=== PATIENT | female | born 1965 | race Caucasian/White ===

== ENCOUNTER → 2016-05-02 | Outpatient (CLI) | payer OTHER ==
[~2016-05-02] MED LIST: IBU600 MG PO; PERCOCET 325 MG1 TA2 PO; SENOKOT8.6 MG PO
[2016-05-02 09:53] LABS: HEMATOCRIT 40.5 % (37.0-47.0); HEMOGLOBIN 14.3 g/dl (12.5-16.0); MEAN CELL VOLUME 84 fl (80.0-100.0); MEAN CORPUSCULAR HEMOGLOBIN 30 pg (27.0-31.0); MEAN CORPUSCULAR HGB CONC 35 g/dl (33.0-37.0); PLATELET COUNT 301 K/mm3 (130-400); RED BLOOD COUNT 4.81 M/mm3 (4.10-5.30); REDCELL DISTRIBUTION WIDTH-CV 12.3 % (11.5-14.5)
[2016-05-02 10:02] LABS: PH 5 (5-8); SQUAMOUS EPITHELIAL 0-2 /hpf; URINE APPEARANCE Clear; URINE BACTERIA Rare /hpf; URINE BILIRUBIN Negative (NEGATIVE); URINE BLOOD Negative (NEGATIVE); URINE COLOR Yellow; URINE GLUCOSE Negative (NEGATIVE); URINE KETONE Negative (NEGATIVE); URINE RBC 0-2 /hpf; URINE UROBILINOGEN Negative (NEGATIVE); URINE WBC 0-2 /hpf
[2016-05-02 10:10] LABS: ADJUSTED CALCIUM 8.8 mg/dL (8.4-10.2); ALBUMIN 4.6 gm/dL (3.5-5.0); BILIRUBIN,TOTAL 0.8 mg/dL (0.0-1.0); CALCIUM 9.3 mg/dL (8.4-10.2); CREATININE, serum 0.86 mg/dL (0.52-1.25); POTASSIUM 3.5 mmol/L (3.4-5.0); TOTAL PROTEIN 8.3 gm/dL (6.4-8.2)
[2016-05-02 11:01] LABS: THYROID STIMULATING HORMONE 13.3 uIU/mL (0.465-4.680)
== END ==
LOC: COL.LAB 09:00
PROVIDERS: Family Medicine
DX: Z00.00 Encounter for general adult medical examination without abnormal findings (principal)

== ENCOUNTER → 2016-08-20 | Outpatient (REF) | LOC: WSOH 15:00 | DX: Z02.89 Encounter for other administrative examinations (principal) ==

== ENCOUNTER → 2016-10-09 | Outpatient (REF) | LOC: WSOH 16:30 | DX: Z02.89 Encounter for other administrative examinations (principal) ==

== ENCOUNTER → 2016-11-19 | Outpatient (CLI) | payer OTHER | LOC: MC.RAD 11-12 07:00 | DX: Z12.31 Encounter for screening mammogram for malignant neoplasm of breast (principal) ==

== ENCOUNTER → 2017-11-19 | Outpatient (CLI) | payer OTHER | LOC: COL.RAD 07:12 | DX: R10.11 Right upper quadrant pain (principal) ==

== ENCOUNTER → 2017-12-31 | Outpatient (CLI) | payer OTHER | LOC: MC.RAD 12:46 | DX: Z12.31 Encounter for screening mammogram for malignant neoplasm of breast (principal) ==

== ENCOUNTER 2018-03-23 19:18 | Observation (INO) | payer OTHER ==
[~2018-03-23] VITALS: Ht 160 cm; Wt 83.6 kg
[2018-03-23] MEDS ORDERED: LEVOXYL0.112 MG PO (19:31)
[2018-03-23] MEDS ORDERED: LOPID 600M600 MG/TAB PO (19:31)
[2018-03-23] MEDS ORDERED: COZAAR100 MG PO (19:31)
[2018-03-23 19:58] VITALS: BP 105/63; PULSE 75
[2018-03-23 20:12] LABS: BASO % 0.2 % (0.0-2.0); GRAN # 4.2 (1.4-6.5); GRAN % 75.5 % (42.2-75.2); HEMATOCRIT 38.4 % (37.0-47.0); HEMOGLOBIN 13.4 g/dl (12.5-16.0); LYMPH # 0.9 (1.2-3.4); LYMPH % 16.2 % (20.0-51.0); MEAN CELL VOLUME 84 fl (80.0-100.0); MEAN CORPUSCULAR HEMOGLOBIN 30 pg (27.0-31.0); MEAN CORPUSCULAR HGB CONC 35 g/dl (33.0-37.0); MEAN PLATELET VOLUME 9.6 fl (7.4-10.4); MONO # 0.4 (0.1-0.6); MONO % 7.7 % (1.7-9.3); PLATELET COUNT 267 K/mm3 (130-400); RED BLOOD COUNT 4.55 M/mm3 (4.10-5.30); REDCELL DISTRIBUTION WIDTH-CV 12.1 % (11.5-14.5)
[2018-03-23 20:25] LABS: ALANINE AMINOTRANSFERASE 21 U/L (9-52); ALBUMIN 4.1 gm/dL (3.5-5.0); ALKALINE PHOSPHATASE 83 U/L (50-136); ANION GAP 9 mmol/L (7-16); AST,SGOT 23 U/L (15-37); BILIRUBIN,TOTAL 0.6 mg/dL (0.0-1.0); BLOOD UREA NITROGEN 17 mg/dL (7-17); CALCIUM 8.9 mg/dL (8.4-10.2); CARBON DIOXIDE 24 mmol/L (22-30); CHLORIDE 102 mmol/L (98-107); CREATININE, serum 0.83 mg/dL (0.52-1.25); GLUCOSE 120 mg/dL (74-106); POTASSIUM 3.4 mmol/L (3.4-5.0); SODIUM 135 mmol/L (137-145); TOTAL PROTEIN 7.3 gm/dL (6.4-8.2)
[2018-03-23 20:36] LABS: TROPONIN-I < 0.012 ng/mL (0.000-0.035)
[2018-03-23 21:12] LABS: MAGNESIUM 1.8 mg/dL (1.6-2.3)
[2018-03-23 21:45] LABS: COLLECTION METHOD CLEAN CATCH
[2018-03-23 21:51] LABS: MUCOUS Present /lpf; PH 5 (5-8); SQUAMOUS EPITHELIAL 0-2 /hpf; URINE APPEARANCE Clear; URINE BACTERIA Occasional /hpf; URINE BILIRUBIN Negative (NEGATIVE); URINE BLOOD Negative (NEGATIVE); URINE COLOR Yellow; URINE GLUCOSE Negative (NEGATIVE); URINE KETONE Negative (NEGATIVE); URINE LEUKOCYTE ESTERASE Negative (NEGATIVE); URINE NITRATE Negative (NEGATIVE); URINE PROTEIN(semi-quant) Negative (NEGATIVE); URINE RBC 0-2 /hpf; URINE UROBILINOGEN Negative (NEGATIVE)
[2018-03-23 22:55] VITALS: BP 118/76; PULSE 78; TEMP 98.1
[2018-03-24 04:30] VITALS: BP 99/57; PULSE 64; TEMP 98.8
[2018-03-24 06:52] LABS: BASO % 0.3 % (0.0-2.0); EOS % 0.9 % (0-4.0); GRAN # 1.6 (1.4-6.5); GRAN % 48.1 % (42.2-75.2); HEMOGLOBIN 11.7 g/dl (12.5-16.0); LYMPH # 1.3 (1.2-3.4); LYMPH % 37.9 % (20.0-51.0); MEAN CELL VOLUME 85 fl (80.0-100.0); MEAN CORPUSCULAR HEMOGLOBIN 29 pg (27.0-31.0); MEAN CORPUSCULAR HGB CONC 35 g/dl (33.0-37.0); MEAN PLATELET VOLUME 10.1 fl (7.4-10.4); MONO # 0.4 (0.1-0.6); MONO % 12.5 % (1.7-9.3); PLATELET COUNT 213 K/mm3 (130-400); RED BLOOD COUNT 3.99 M/mm3 (4.10-5.30); REDCELL DISTRIBUTION WIDTH-CV 12.3 % (11.5-14.5)
[2018-03-24 06:53] LABS: HEMATOCRIT 33.8 % (37.0-47.0)
[2018-03-24 07:08] LABS: CALCIUM 8.1 mg/dL (8.4-10.2); CREATININE, serum 0.7 mg/dL (0.52-1.25); POTASSIUM 3.6 mmol/L (3.4-5.0)
[2018-03-24 07:33] VITALS: BP 118/70; PULSE 56; TEMP 98.2
[2018-03-24 11:33] VITALS: BP 125/75; PULSE 51; TEMP 98.1
== END 2018-03-24 16:20 | disposition home or self-care (01) ==
LOC: COL.ER 19:18 → SURG 21:39
PROVIDERS: Emergency Medicine; Nurse Practitioner Family; ADMIT Hospitalist
DX: R55 Syncope and collapse (principal); I10 Essential (primary) hypertension; E78.5 Hyperlipidemia, unspecified; E03.9 Hypothyroidism, unspecified; G80.9 Cerebral palsy, unspecified; R10.9 Unspecified abdominal pain; R19.5 Other fecal abnormalities; Z82.3 Family history of stroke; Z82.49 Family history of ischemic heart disease and other diseases of the circulatory system
CPT/HCPCS: G0378; J2405; J7030

== ENCOUNTER → 2018-04-08 | Outpatient (CLI) | payer OTHER ==
[~2018-04-08] MED LIST changes: +COZAAR100 MG PO; +LEVOXYL0.112 MG PO; +LOPID 600M600 MG/TAB PO
== END ==
LOC: COL.RAD 04-06 11:15
DX: R10.13 Epigastric pain (principal); R19.7 Diarrhea, unspecified; R19.4 Change in bowel habit; R19.5 Other fecal abnormalities

== ENCOUNTER 2018-04-29 05:52 | Day surgery (SDC) | payer OTHER ==
[~2018-04-29] VITALS: Ht 160 cm; Wt 81.6 kg
--- NOTE | 2018-04-29 06:49 | NUR ---
Pt taken via cart by Daily PAUL RN, to procedure room.
--- NOTE | 2018-04-29 06:49 | NUR ---
Recheck of pts BP 138/90. Temp 98.4.
[2018-04-29 07:45] VITALS: BP 128/80; PULSE 60; TEMP 97.8
--- NOTE | 2018-04-29 07:45 | NUR ---
Pt returned via cart to [facility]. Drowsy but oriented. Friend, Nahed, in room and will take pt home when discharged. Staff assisted pt to ambulate from cart to recliner in bay. Chair reclined and call light in reach. VSS-bp has improved. Pt given iced water and saltines per request. Denies needs or complaints.
[2018-04-29 08:00] VITALS: BP 161/100; PULSE 53
[2018-04-29 08:15] VITALS: BP 143/86; PULSE 55
[2018-04-29 08:30] VITALS: BP 148/91; PULSE 56
--- NOTE | 2018-04-29 08:40 | NUR ---
Pt assisted with ambulation to bathroom with steady gait. Call light within reach of pt.
--- NOTE | 2018-04-29 09:04 | NUR ---
Pt tolerated saltine crackers and water. VS remain stable-see flowsheet. Discharge teaching completed and pt verbalized understanding. IV removed with catheter tip intact and cotton ball and coban applied to right hand over site. Pt taken via wheelchair to friendWyatt car for dc home with Nahed driving.
== END 2018-04-29 09:04 | disposition home or self-care (01) ==
LOC: SDCO 05:52
DX: K21.0 Gastro-esophageal reflux disease with esophagitis (principal); K29.30 Chronic superficial gastritis without bleeding; D12.8 Benign neoplasm of rectum; K29.80 Duodenitis without bleeding; K44.9 Diaphragmatic hernia without obstruction or gangrene; R19.7 Diarrhea, unspecified; K64.0 First degree hemorrhoids; K92.1 Melena; K76.0 Fatty (change of) liver, not elsewhere classified; E78.00 Pure hypercholesterolemia, unspecified
CPT/HCPCS: J2250; J2405; J3010; J7030

== ENCOUNTER → 2019-03-24 | Outpatient (CLI) | payer OTHER | LOC: MC.RAD 15:14 | DX: Z12.31 Encounter for screening mammogram for malignant neoplasm of breast (principal) ==

== ENCOUNTER 2019-07-30 12:41 | Emergency (ER) | payer OTHER ==
[~2019-07-30] VITALS: Ht 160 cm; Wt 81.8 kg
[2019-07-30 12:50] VITALS: BP 152/88; PULSE 86; TEMP 98
== END 2019-07-30 13:37 | disposition home or self-care (01) ==
LOC: COL.ER 12:41
DX: S01.81XA Laceration without foreign body of other part of head, initial encounter (principal); W01.198A Fall on same level from slipping, tripping and stumbling with subsequent striking against other object, initial encounter; Y92.59 Other trade areas as the place of occurrence of the external cause

== ENCOUNTER → 2019-08-06 | Outpatient (CLI) | payer OTHER ==
[2019-08-06 07:55] VITALS: BP 118/81; PULSE 74; TEMP 98.3
== END ==
LOC: COL.ER 07:48
DX: Z48.02 Encounter for removal of sutures (principal)

== ENCOUNTER → 2020-04-12 | Outpatient (CLI) | payer OTHER | LOC: MC.RAD 11:14 | DX: Z12.31 Encounter for screening mammogram for malignant neoplasm of breast (principal) ==